=== PATIENT | female | born 1970 | race Caucasian/White ===

== ENCOUNTER 2016-12-20 12:02 | Emergency (ER) | payer OTHER ==
[~2016-12-20] VITALS: Ht 165.1 cm; Wt 83.1 kg
[2016-12-20 15:04] LABS: MCH 28.8 PG (29.0-34.0); MCHC 34.2 G/DL (30.0-36.0); MCV 84.3 FL (83-99); MEAN PLAT.VOLUME 9.6 uM^3 (9.5-12.4); PLATELET COUNT 259 K/uL (156-360); RBC DIS.WIDTH-CV 12.8 % (11.8-14.6); RBC DIS.WIDTH-SD 39.3 % (39-53); RED BLOOD COUNT 4.27 M/uL (3.80-5.20); WHITE BLOOD COUNT 13.2 K/uL (4.1-10.2)
[2016-12-20 15:12] LABS: CHLORIDE 107 mEq/L (99-109); SODIUM 139 mEq/L (136-147)
[2016-12-20 15:14] LABS: GLUCOSE 102 mg/dL (70-99)
[2016-12-20 15:15] LABS: ANION GAP 7 MEQ/L (2-14)
[2016-12-20 15:18] LABS: GFR ESTIMATE (CALCULATED) > 59 mL/min/
[2016-12-20 15:19] LABS: UREA NITROGEN (BUN) 14 mg/dL (9-23)
[2016-12-20 15:25] LABS: TROP-I INTERPRETATION NEGATIVE; TROPONIN-I < 0.01 ng/mL (0.0-0.30)
[2016-12-20 16:09] VITALS: BP 131/78
== END 2016-12-20 16:10 | disposition home or self-care (01) ==
LOC: EME 12:02
PROVIDERS: Emergency Medicine
DX: R07.9 Chest pain, unspecified (principal)
CPT/HCPCS: 71010; 80048; 84484; 85027; 93005; 99281; 99285